=== PATIENT | female | born 1985 | race Caucasian/White ===

== ENCOUNTER 2018-06-06 21:57 | Emergency (ER) | payer BC, MEDICAID ==
[2018-06-06 22:15] VITALS: BP 146/67
--- NOTE | 2018-06-06 22:30 | EDM.PDOC ---
ED HPI GENERAL MEDICAL PROBLEM - General Chief Complaint: ENT Problem Stated Complaint: ILLNESS Time Seen by Provider: 06/06/18 22:15 Source of Information: Reports: Patient History Limitations: Reports: No Limitations - History of Present Illness INITIAL COMMENTS - FREE TEXT/NARRATIVE: 32-year-old female with sinus pressure, ear pain, sore throat and generalized malaise for the past 2 days. No significant cough or shortness of breath, no rashes. 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: - Infectious Disease History Infectious Disease History: Reports: Chicken Pox - Past Surgical History Musculoskeletal Surgical History: Reports: Other (See Below) Social & Family History - Tobacco Use Smoking Status *Q: Current Every Day Smoker Years of Tobacco use: 8 Packs/Tins Daily: 0.5 - Caffeine Use Caffeine Use: Reports: Coffee - Recreational Drug Use Recreational Drug Use: No ED ROS ENT - Review of Systems Review Of Systems: See Below Constitutional: Reports: Malaise HEENT: Reports: Ear Pain, Rhinitis, Throat Pain Respiratory: Denies: Shortness of Breath, Cough Cardiovascular: Denies: Chest Pain GI/Abdominal: Denies: Nausea, Vomiting Skin: Reports: No Symptoms Neurological: Denies: Headache ED EXAM, ENT - Physical Exam Exam: See Below Exam Limited By: No Limitations General Appearance: Alert, No Apparent Distress Eye Exam: Bilateral Eye: Normal Inspection Ears: Normal TMs Mouth/Throat: Pharyngeal Erythema Head: Atraumatic Neck: Lymphadenopathy (R), Lymphadenopathy (L) Respiratory/Chest: No Respiratory Distress, Lungs Clear Neurological: Alert, Oriented Psychiatric: Normal Affect, Normal Mood Skin: Warm, Dry Course - Vital Signs Last Recorded V/S: Last Vital Signs Temp 98.3 F 06/06/18 22:16 Pulse 90 06/06/18 22:16 Resp 18 06/06/18 22:16 BP 146/67 H 06/06/18 22:16 Pulse Ox 98 06/06/18 22:16 - Orders/Labs/Meds Orders: Active Orders 24 hr Category Date Time Status CULTURE STREP A CONFIRMATION [RM] Routine Lab 06/06/18 22:27 Results STREP SCRN A RAPID W CULT CONF [RM] Routine Lab 06/06/18 22:27 Results - Re-Assessments/Exams Free Text/Narrative Re-Assessment/Exam: 06/06/18 22:29 Rapid strep was obtained. 06/06/18 22:54 Strep was negative. A note was written for the patient to be off work tomorrow, she should rest and get fluids, increase activity as tolerated and recheck early next week if not improving satisfactorily. Departure - Departure Time of Disposition: 23:00 Disposition: Home, Self-Care 01 Condition: Good Clinical Impression: Viral URI - Discharge Information Instructions: Viral Respiratory Infection, [id number] Referrals: PCP,None [Primary Care Provider] - Forms: ED Department Discharge Care Plan Goals: Rest, fluids, Tylenol or ibuprofen may help. Increase activity as tolerated and recheck early next week if not improving satisfactorily. - My Orders Last 24 Hours: My Active Orders 06/06/18 22:27 CULTURE STREP A CONFIRMATION [RM] Routine STREP SCRN A RAPID W CULT CONF [RM] Routine - Assessment/Plan Last 24 Hours: My Active Orders 06/06/18 22:27 CULTURE STREP A CONFIRMATION [RM] Routine STREP SCRN A RAPID W CULT CONF [RM] Routine
== END 2018-06-06 23:00 | disposition home or self-care (01) ==
LOC: JP.ED 21:57
DX: J06.9 Acute upper respiratory infection, unspecified (principal); F17.210 Nicotine dependence, cigarettes, uncomplicated; Z79.899 Other long term (current) drug therapy
CPT/HCPCS: 87081; 87430; 99283

== ENCOUNTER 2018-09-22 12:37 | Emergency (ER) | payer BC, MEDICAID ==
[2018-09-22 13:13] VITALS: BP 125/70
[2018-09-22] MEDS ORDERED: cefTRIAXone 1 GM, Lidocaine 1% 2.1 ML IM ONE ×2 (13:41)
[2018-09-22] MEDS ORDERED: Acetaminophen/HYDROcodone 325-5 MG Tab PO ONE (13:47)
--- NOTE | 2018-09-22 13:47 | EDM.PDOC ---
ED HPI GENERAL MEDICAL PROBLEM - General Chief Complaint: ENT Problem Stated Complaint: TOOTH INFECTION Time Seen by Provider: 09/22/18 13:20 Source of Information: Reports: Patient History Limitations: Reports: No Limitations - History of Present Illness INITIAL COMMENTS - FREE TEXT/NARRATIVE: pt arrived with increased pain in the rt lower molar area. She has swelling along the jaw line. She is having severe pain with this. She has a dental appt toomorrow Onset: Gradual, Other (last 2 days. She was placed on amoxicillin on Sunday. She has had 6 doses. ) Duration: Hour(s): Location: Reports: Face Associated Symptoms: Reports: No Other Symptoms Tooth/Teeth Pain Score (Numeric/FACES): 8 - Related Data Allergies Allergy/AdvReac Type Severity Reaction Status Date / Time No Known Allergies Allergy Verified 09/22/18 13:14 Home Meds: Home Meds Vits #93/Iron Fum/FA [ Formula Tablet] 1 tab PO DAILY 12/26/15 [History] Acetaminophen [Tylenol Extra Strength] 500 mg PO Q8HR PRN 09/22/18 [History] Acyclovir [Zovirax] 400 mg TID 09/22/18 [History] Amoxicillin 500 mg TID 09/22/18 [History] Cholecalciferol (Vitamin D3) [Vitamin D] 5,000 units PO DAILY 09/22/18 [History] Ferrous Sulfate [Iron] 325 mg PO DAILY 09/22/18 [History] Past Medical History HEENT History: Reports: Otitis Media 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: Musculoskeletal History: Reports: Other (See Below) Other Musculoskeletal History: DDD Neurological History: Reports: Concussion - Infectious Disease History Infectious Disease History: Reports: Chicken Pox - Past Surgical History Musculoskeletal Surgical History: Reports: Other (See Below) Social & Family History - Tobacco Use Smoking Status *Q: Current Every Day Smoker Years of Tobacco use: 10 Packs/Tins Daily: 0.5 Used Tobacco, but Quit: No Second Hand Smoke Exposure: Yes - Caffeine Use Caffeine Use: Reports: Coffee - Recreational Drug Use Recreational Drug Use: No ED ROS ENT - Review of Systems Review Of Systems: See Below HEENT: Reports: Dental Pain Respiratory: Reports: No Symptoms Cardiovascular: Reports: No Symptoms Endocrine: Reports: No Symptoms GI/Abdominal: Reports: No Symptoms : Reports: No Symptoms ED EXAM, ENT - Physical Exam Exam: See Below Text/Narrative:: 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 She has dental pain in the rt lower molar area. There appears to be two teeth involved. The crown did come off of one of the molars. Exam Limited By: No Limitations General Appearance: Alert, Anxious, Moderate Distress Ears: Normal TMs Nose: Normal Inspection Mouth/Throat: Other (pt has 2 of the teeth that are very uncomfortabl;e. She does have swelling along the jaw line. ) Head: Atraumatic Neck: Lymphadenopathy (R) Respiratory/Chest: No Respiratory Distress Course - Vital Signs Last Recorded V/S: Last Vital Signs Temp 35.1 C L 09/22/18 13:20 Pulse 85 09/22/18 13:20 Resp 16 09/22/18 13:20 BP 125/70 09/22/18 13:20 Pulse Ox 97 09/22/18 13:20 - Orders/Labs/Meds Meds: Medications Discontinued Medications Generic Name Dose Route Start Last Admin Trade Name Freq PRN Reason Stop Dose Admin Hydrocodone Bitart/Acetaminophen 1 tab 09/22/18 13:47 09/22/18 13:54 [place] 325-5 Mg PO 09/22/18 13:48 1 tab ONETIME ONE Administration Ceftriaxone Sodium 1 gm/ 0 gm 09/22/18 13:41 09/22/18 13:51 Lidocaine HCl 2.1 ml IM 09/22/18 13:42 1 inj ONETIME ONE Administration - Re-Assessments/Exams Free Text/Narrative Re-Assessment/Exam: 09/22/18 13:47 pt was given rocephen 1 gm im. hydrocodone 5/325 Departure - Departure Time of Disposition: 13:49 Disposition: Home, Self-Care 01 Condition: Fair Clinical Impression: Tooth infection - Discharge Information Instructions: Dental Abscess, [id number] Referrals: Karo Varela RN [Primary Care Provider] - Forms: ED Department Discharge Care Plan Goals: keep dental appt tomorrow, cont amoxicillin, norco 5/325 q6h prn for pain #6
== END 2018-09-22 14:01 | disposition home or self-care (01) ==
LOC: JP.ED 12:37
DX: K04.7 Periapical abscess without sinus (principal); F17.210 Nicotine dependence, cigarettes, uncomplicated
CPT/HCPCS: A9270-GY; J0696; J2001

== ENCOUNTER 2018-11-17 14:25 | Emergency (ER) | payer BC ==
[2018-11-17] MEDS ORDERED: Acetaminophen 1,000 MG in Premix Bag 1 BAG IV ONE (14:59)
[2018-11-17] MEDS ORDERED: Sodium Chloride 0.9% 1,000 ML IV SCH ×2 (15:00→17:45)
[2018-11-17] MEDS ORDERED: Acetaminophen 500 MG Tab PO ONE (15:04)
[2018-11-17] MEDS ORDERED: Ondansetron 4 MG/2 ML SDV IVPUSH ONE (15:05)
[2018-11-17] MEDS ORDERED: fentaNYL 100 MCG/2 ML SDV IVPUSH ONE (15:40)
--- NOTE | 2018-11-17 15:47 | CRLCT ---
Headache. Technique noncontrast head CT scan. Coronal sagittal reformat images obtained. COMPARISON: No comparison studies are available FINDINGS: Axial noncontrast images through the brain parenchyma demonstrates no acute intracranial hemorrhage or mass. No midline shift. No abnormal extra-axial air fluid collections. Mucosal thickening of the ethmoid air cells paranasal sinuses mastoid air cells skull and scalp appear otherwise unremarkable. IMPRESSION: No acute intracranial hemorrhage or mass Ethmoid sinus disease. Please note that all CT scans at this facility use dose modulation, iterative reconstruction, and/or weight-based dosing when appropriate to reduce radiation dose to as low as reasonably achievable. Dictated by Sho Monae MD @ Nov 17 2018 3:44PM Signed by Dr. Sho Monae @ Nov 17 2018 3:46PM
[2018-11-17] MEDS ORDERED: Ketorolac 30 MG/ML SDV IVPUSH ONE (15:58)
[2018-11-17] MEDS ORDERED: Doxycycline 100 MG Cap PO ONE (17:35)
[2018-11-17 18:10] VITALS: BP 108/50
--- NOTE | 2018-11-17 18:27 | EDM.PDOC ---
ED HPI GENERAL MEDICAL PROBLEM - General Chief Complaint: Headache Stated Complaint: TERRIBLE HEADACHE Time Seen by Provider: 11/17/18 14:56 Source of Information: Reports: Patient History Limitations: Reports: No Limitations - History of Present Illness INITIAL COMMENTS - FREE TEXT/NARRATIVE: 33 yo female present with severe headache located in crown of head. HEadache has been present sin cethu evening when it initiated it was a severe sudden onset. She also has had fever and chills for 2 days. mild congestion. she did have a tick bite 2 weeks ago, unsure what kind of tick. 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: Musculoskeletal History: Reports: Other (See Below) Other Musculoskeletal History: DDD Neurological History: Reports: Concussion - Infectious Disease History Infectious Disease History: Reports: Chicken Pox - Past Surgical History Musculoskeletal Surgical History: Reports: Other (See Below) Social & Family History - Tobacco Use Smoking Status *Q: Current Every Day Smoker Years of Tobacco use: 16 Packs/Tins Daily: 0.5 - Caffeine Use Caffeine Use: Reports: Coffee ED ROS GENERAL - Review of Systems Review Of Systems: See Below Constitutional: Reports: Fever, Chills, Malaise, Fatigue HEENT: Reports: Rhinitis, Sinus Problem Respiratory: Denies: Shortness of Breath, Wheezing Cardiovascular: Denies: Chest Pain GI/Abdominal: Reports: Anorexia Skin: Denies: Rash - Physical Exam Exam: See Below Exam Limited By: No Limitations General Appearance: Alert, WD/WN, Mild Distress Ears: Normal External Exam, Normal Canal, Hearing Grossly Normal, Normal TMs Nose: Normal Inspection, Normal Mucosa, No Blood Throat/Mouth: Normal Inspection, Normal Lips, Normal Teeth, Normal Gums, Normal Oropharynx, Normal Voice Head Exam: Atraumatic, Normocephalic Neck: Normal Inspection, Supple, Non-Tender, Full Range of Motion. No: Lymphadenopathy (R), Lymphadenopathy (L) Respiratory/Chest: No Respiratory Distress, Lungs Clear, Normal Breath Sounds, No Accessory Muscle Use, Chest Non-Tender. No: Crackles, Rhonchi, Wheezing Cardiovascular: No Edema, No Murmur, Tachycardia GI/Abdominal: Soft, Non-Tender Neuro Exam (Abbreviated): Alert, Oriented, CN II-XII Intact, Normal Cognition, Normal Gait Back Exam: No: CVA Tenderness (R), CVA Tenderness (L) Psychiatric: Normal Affect, Normal Mood Skin Exam: Warm, Dry, Intact, Normal Color, No Rash Course - Vital Signs Last Recorded V/S: Last Vital Signs Temp 37.3 C 11/17/18 18:07 Pulse 62 11/17/18 18:07 Resp 14 11/17/18 18:07 BP 108/50 L 11/17/18 18:07 Pulse Ox 97 11/17/18 18:07 - Orders/Labs/Meds Orders: Active Orders 24 hr Category Date Time Status BABESIA MICROTI ANTIBODY PANEL Urgent Lab 11/17/18 15:18 Received CULTURE BLOOD [BC] Urgent Lab 11/17/18 15:00 Received CULTURE BLOOD [BC] Urgent Lab 11/17/18 15:10 Received CULTURE STREP A CONFIRMATION [RM] Stat Lab 11/17/18 14:58 Results HUMAN GRANULOCYTIC JULISSA-HGE Urgent Lab 11/17/18 15:18 Received LYME, TOTAL AB TEST/REFLEX Stat Lab 11/17/18 15:18 Received STREP SCRN A RAPID W CULT CONF [RM] Stat Lab 11/17/18 14:58 Results Sodium Chloride 0.9% [Normal Saline] 1,000 ml Med 11/17/18 15:00 Active IV ASDIRECTED Sodium Chloride 0.9% [Normal Saline] 1,000 ml Med 11/17/18 17:45 Active IV ASDIRECTED Blood Culture x2 Reflex Set [OM.PC] Urgent Oth 11/17/18 15:03 Ordered Medication Orders Sodium Chloride (Normal Saline) 1,000 mls @ 999 mls/hr IV ASDIRECTED JAYNE Last Admin: 11/17/18 15:26 Dose: 999 mls/hr Sodium Chloride (Normal Saline) 1,000 mls @ 999 mls/hr IV ASDIRECTED JAYNE Last Admin: 11/17/18 18:04 Dose: 999 mls/hr Labs: Laboratory Tests 06/23/19 06/23/19 Range/Units 15:18 15:18 WBC 6.4 (4.5-11.0) K/uL RBC 4.85 (3.30-5.50) M/uL Hgb 14.2 (12.0-15.0) g/dL Hct 42.6 (36.0-48.0) % MCV 88 (80-98) fL MCH 29 (27-31) pg MCHC 33 (32-36) % Plt Count 148 L (150-400) K/uL Neut % (Auto) 74 H (36-66) % Lymph % (Auto) 18 L (24-44) % Fisher % (Auto) 8 H (2-6) % Eos % (Auto) 0 L (2-4) % Baso % (Auto) 0 (0-1) % Sodium 138 L (140-148) mmol/L Potassium 3.4 L (3.6-5.2) mmol/L Chloride 101 (100-108) mmol/L Carbon Dioxide 25 (21-32) mmol/L Anion Gap 15.4 H (5.0-14.0) mmol/L BUN 9 (7-18) mg/dL Creatinine 0.8 (0.6-1.0) mg/dL Est Cr Clr Drug Dosing 98.40 mL/min Estimated GFR (MDRD) > 60 (>60) Glucose 97 (74-106) mg/dL Calcium 9.1 (8.5-10.1) mg/dL Total Bilirubin 0.4 (0.2-1.0) mg/dL AST 19 (15-37) U/L ALT 20 (12-78) U/L Alkaline Phosphatase 76 (46-116) U/L Total Protein 8.0 (6.4-8.2) g/dL Albumin 3.4 (3.4-5.0) g/dL Globulin 4.6 H (2.3-3.5) g/dL Albumin/Globulin Ratio 0.7 L (1.2-2.2) Meds: Medications Generic Name Dose Route Start Last Admin Trade Name Freq PRN Reason Stop Dose Admin Sodium Chloride 1,000 mls @ 999 mls/hr 11/17/18 15:00 11/17/18 15:26 Normal Saline IV 999 mls/hr ASDIRECTED JAYNE Administration Sodium Chloride 1,000 mls @ 999 mls/hr 11/17/18 17:45 11/17/18 18:04 Normal Saline IV 999 mls/hr ASDIRECTED JAYNE Administration Discontinued Medications Generic Name Dose Route Start Last Admin Trade Name Kristen PRN Reason Stop Dose Admin Acetaminophen 1,000 mg 11/17/18 15:04 11/17/18 15:20 Tylenol Extra Strength PO 11/17/18 15:05 1,000 mg ONETIME ONE Administration Doxycycline Hyclate 100 mg 11/17/18 17:35 11/17/18 18:04 Vibramycin PO 11/17/18 17:36 100 mg ONETIME ONE Administration Fentanyl 50 mcg 11/17/18 15:40 11/17/18 15:48 Sublimaze IVPUSH 11/17/18 15:41 50 mcg ONETIME ONE Administration Acetaminophen 1,000 mg/ Premix 100 mls @ 400 mls/hr 11/17/18 14:59 IV 11/17/18 15:13 NOW ONE Ketorolac Tromethamine 30 mg 11/17/18 15:58 11/17/18 18:04 Toradol IVPUSH 11/17/18 15:59 30 mg ONETIME ONE Administration Ondansetron HCl 4 mg 11/17/18 15:05 11/17/18 15:20 Zofran IVPUSH 11/17/18 15:06 4 mg ONETIME ONE Administration - Re-Assessments/Exams Free Text/Narrative Re-Assessment/Exam: 11/17/18 18:29 headache relieved with fluids and medications. CT scan no acute intracranial hemorrhage but did show ethmoid sinusitis. pt received 2 liters of fluid and fever resolved. will initiate on antibiotic doxycycline to treat both sinusitis and if this is a tick born illness. Departure - Departure Time of Disposition: 18:45 Disposition: Home, Self-Care 01 Condition: Good Clinical Impression: Sinusitis, Tick borne fever - Discharge Information *PRESCRIPTION DRUG MONITORING PROGRAM REVIEWED*: Not Applicable *COPY OF PRESCRIPTION DRUG MONITORING REPORT IN PATIENT SCARLETT: Not Applicable Instructions: Sinusitis, Adult, [id number] Referrals: Karo Varela RN [Primary Care Provider] - Forms: ED Department Discharge Additional Instructions: Doxycycline 100 mg twice daily for 14 days increase fluid intake with goal of 1.5-2 liters per day rest Ibuprofen 400-600 mg every 6 hours for fever control and pain return if headache returns to previous severity - My Orders Last 24 Hours: My Active Orders 11/17/18 14:58 CULTURE STREP A CONFIRMATION [RM] Stat STREP SCRN A RAPID W CULT CONF [RM] Stat 11/17/18 15:00 CULTURE BLOOD [BC] Urgent Sodium Chloride 0.9% [Normal Saline] 1,000 ml IV ASDIRECTED 11/17/18 15:03 Blood Culture x2 Reflex Set [OM.PC] Urgent 11/17/18 15:10 CULTURE BLOOD [BC] Urgent 11/17/18 15:18 BABESIA MICROTI ANTIBODY PANEL Urgent HUMAN GRANULOCYTIC JULISSA-HGE Urgent LYME, TOTAL AB TEST/REFLEX Stat 11/17/18 17:45 Sodium Chloride 0.9% [Normal Saline] 1,000 ml IV ASDIRECTED - Assessment/Plan Last 24 Hours: My Active Orders 11/17/18 14:58 CULTURE STREP A CONFIRMATION [RM] Stat STREP SCRN A RAPID W CULT CONF [RM] Stat 11/17/18 15:00 CULTURE BLOOD [BC] Urgent Sodium Chloride 0.9% [Normal Saline] 1,000 ml IV ASDIRECTED 11/17/18 15:03 Blood Culture x2 Reflex Set [OM.PC] Urgent 11/17/18 15:10 CULTURE BLOOD [BC] Urgent 11/17/18 15:18 BABESIA MICROTI ANTIBODY PANEL Urgent HUMAN GRANULOCYTIC JULISSA-HGE Urgent LYME, TOTAL AB TEST/REFLEX Stat 11/17/18 17:45 Sodium Chloride 0.9% [Normal Saline] 1,000 ml IV ASDIRECTED
[2018-11-21 16:08] LABS: BABESIA MICROTI IGG 1:40 (Neg:<1:10); BABESIA MICROTI IGM <1:10 (Neg:<1:10)
== END 2018-11-17 19:31 | disposition home or self-care (01) ==
LOC: JP.ED 14:25
DX: A93.8 Other specified arthropod-borne viral fevers (principal); J32.9 Chronic sinusitis, unspecified; F17.210 Nicotine dependence, cigarettes, uncomplicated
CPT/HCPCS: 36415; 70450; 80053; 85025; 86666; 86753; 87040; 87081; 87430; 96361; 96374; 96375; 99284; A9270; J1885; J2405; J3010; J7030

== ENCOUNTER 2020-12-12 12:34 | Emergency (ER) | payer BC, MEDICAID ==
[2020-12-12 13:04] VITALS: BP 121/69; PULSE 89
--- NOTE | 2020-12-12 13:43 | EDM.PDOC ---
<Amy Wilson - Last Filed: 12/12/20 17:45> ED HPI GENERAL MEDICAL PROBLEM - General Chief Complaint: Respiratory Problem Stated Complaint: DOUBLE PERIODS, WEAK, HEART PALPULTATIONS Time Seen by Provider: 12/12/20 13:15 Source of Information: Reports: Patient, Family History Limitations: Reports: No Limitations - History of Present Illness INITIAL COMMENTS - FREE TEXT/NARRATIVE: 35 year old female with history of lyme disease arrives with multiple complaints including cough, fever, shortness of breath, nausea, vomiting, weakness, weight loss of 15 lbs in 3 months, "double menses" x 3 months (regular flow for 4 days, stops and then returns days later with regular flow for 4 more days), and fatigue. All of her symptoms have been going on for 3 months. She reports that the reason for her visit today is due to her menses starting again and her being frustrated with her symptoms. She is anxious and on the verge of tears during interaction. Reports hx of abnormal PAP 1 year ago but doesn't recall the details, has had a previous miscarriage prior to the of her two health, living children. Patient is not preventing at this time, is , sexually active, and has not had any new partners. She denies other complaints such as chest pain, blood in her stool or urine, rashes. She reports that she has had lyme flair ups similar to this for the last two years around this time but those were not accompanied with changes in her menses. She reports she has not had Covid-19 and has not been vaccinated for Covid-19. Onset: Gradual Duration: Chronic Location: Reports: Generalized Quality: Reports: Ache Severity: Moderate Improves with: Reports: None Worsens with: Reports: None Associated Symptoms: Reports: Cough, Diaphoresis, Fever/Chills, Loss of Appetite, Malaise, Nausea/Vomiting, Shortness of Breath, Weakness - Related Data Allergies Allergy/AdvReac Type Severity Reaction Status Date / Time No Known Allergies Allergy Verified 12/12/20 12:48 Past Medical History HEENT History: Reports: Otitis Media [employer] History: Reports: Musculoskeletal History: Reports: Other (See Below) Other Musculoskeletal History: DDD Neurological History: Reports: Concussion - Infectious Disease History Infectious Disease History: Reports: Chicken Pox - Past Surgical History Other HEENT Surgeries/Procedures: wisdom teeth removed Musculoskeletal Surgical History: Reports: Other (See Below) Other Musculoskeletal Surgeries/Procedures:: degerative disease, 3 bulg disks in back Social & Family History - Tobacco Use Years of Tobacco use: 20 Packs/Tins Daily: 0.5 - Caffeine Use Caffeine Use: Reports: Coffee ED ROS GENERAL - Review of Systems Review Of Systems: See Below Constitutional: Reports: Fever, Chills, Malaise, Weakness, Fatigue, Night Sweats, Diaphoresis, Decreased Appetite, Weight Loss HEENT: Reports: No Symptoms Respiratory: Reports: Shortness of Breath (with exertion), Cough, Sputum (small production of clear/ yellow phlem with coughing). Denies: Wheezing Cardiovascular: Reports: Dyspnea on Exertion (moderate), Palpitations (with activity). Denies: Chest Pain, Blood Pressure Problem, Edema, Lightheadedness, Syncope Endocrine: Reports: No Symptoms GI/Abdominal: Reports: Decreased Appetite (no nausea but just "doesnt feel like eating"), Nausea (one episode of nausea and vomiting on sunday), Vomiting. Denies: Abdominal Pain, Black Stool, Bloody Stool, Constipation, Diarrhea, Hematemesis, Hematochezia : Reports: No Symptoms. Denies: Dysuria, Flank Pain, Hematuria Musculoskeletal: Reports: No Symptoms Skin: Reports: Diaphoresis (she reports night sweats that soak her sheets, nearly every night) Neurological: Denies: Confusion, Dizziness, Headache, Numbness, Syncope, Tremors, Difficulty Walking Psychiatric: Reports: Anxiety (tearful with coversation and "jumpy" with inspection/ palpation) Hematologic/Lymphatic: Reports: No Symptoms (does not appear pale) Immunologic: Reports: No Symptoms ED EXAM, GENERAL - Physical Exam Exam: See Below Free Text/Narrative:: Dionne is resting on the cart, she is tearful with interactions. Generally well appearing, skin is warm, dry, and normal/ good color for race. She is alert and oriented, respirations are regular and non labored, lungs are clear throughout, no abnormal heart sounds, she has no pain with palpation of the abdomen,normal active bowel sounds, No pedal edema. Her vitals are WNL and does not appear to be in distress. No cervical lymphadenopathy. Exam Limited By: No Limitations General Appearance: Alert, WD/WN, Anxious Ears: Normal External Exam Nose: Normal Inspection, Normal Mucosa, No Blood Throat/Mouth: Normal Inspection, Normal Lips, Normal Voice, No Airway Compromise Head: Atraumatic. No: Facial Swelling Neck: Normal Inspection, Non-Tender, Full Range of Motion. No: Lymphadenopathy (R) Respiratory/Chest: No Respiratory Distress, Lungs Clear, Normal Breath Sounds. No: Decreased Breath Sounds, Crackles, Rales, Rhonchi, Wheezing, Stridor Cardiovascular: Normal Peripheral Pulses, Regular Rate, Rhythm, No Edema GI/Abdominal: Normal Bowel Sounds, Soft, Non-Tender, No Distention. No: Distended, Guarding, Rigid, Tender, Abnormal Bowel Sounds (Female) Exam: Vaginal Bleeding ("double menses" for 3 months now- 4 days of regular flow, stops, then 4 more days of flow. Denies other vaginal discharge) Rectal (Female) Exam: Deferred Back Exam: Normal Inspection, Full Range of Motion Extremities: Normal Inspection, Normal Range of Motion, Non-Tender, No Pedal Edema, Normal Capillary Refill Neurological: Alert, Oriented, Normal Cognition, Normal Gait. No: Inattentive, Confused, Memory Loss Remote Events, Memory Loss Recent Events, Abnormal Gait Psychiatric: Anxious, Tearful Skin Exam: Warm, Dry, Intact, Normal Color, No Rash. No: Jaundice, Rash Lymphatic: No Adenopathy Course - Vital Signs Text/Narrative:: Discussed with patient large workup, including blood tests, xray, and covid swab. Patient is anxious and near tears during assessment. Agreeable to plan of care at this time. - Re-Assessments/Exams Free Text/Narrative Re-Assessment/Exam: 12/12/20 16:51 Discussed with patient the results of her blood tests. CRP and DDimer are elevated. CXR showed some right lower lobe infiltrates. Patient is agreeable to CT PE study with contrast and IV fluid bolus. Departure - Departure Time of Disposition: 17:35 Disposition: Home, Self-Care 01 Condition: Good Clinical Impression: Lyme disease, Tick borne fever Pneumonia Qualifiers: Pneumonia type: due to unspecified organism Laterality: bilateral Lung location: lower lobe of lung Qualified Code(s): J18.9 - Pneumonia, unspecified organism - Discharge Information Instructions: Shortness of Breath, Adult, [id number], COVID-19 Vaccine Information Referrals: PCP,None [Primary Care Provider] - Forms: ED Department Discharge Care Plan Goals: You have antibodies for old lyme disease and acute lyme disease today, as well as a "covid like" pneumonia on your CT scan. No blood clots in your lungs. Please take Doxycycline twice per day for 3 weeks. This will cover the pneumonia and the active lyme disease. It is likely you may have had covid 19 when your symptoms first started but are showing negative at this time and just have a lingering pneumonia. Please try to stop smoking. If you are not feeling like you are improving or if you feel you are getting worse, please return for re evaluation. Establish care with a primary doctor and make a follow up apointment in a week to monitor your symptoms and make sure you are improving. Take antibiotics with food and stay well hydrated. You can use Tylenol and or Ibuprofen for fevers and body aches. Sepsis Event Note (ED) - Evaluation Sepsis Screening Result: No Definite Risk <Martín Meneses - Last Filed: 12/13/20 11:13> Course - Vital Signs Last Recorded V/S: Last Vital Signs Temp 98.1 F 12/12/20 13:03 Pulse 89 12/12/20 13:03 Resp 16 12/12/20 13:03 BP 121/69 12/12/20 13:03 Pulse Ox 96 12/12/20 13:03 - Orders/Labs/Meds Orders: Active Orders 24 hr Category Date Time Status LYME, LINE BLOT, SERUM Stat Lab 12/12/20 13:43 Received Saline Lock Insert [OM.PC] Routine Oth 12/12/20 15:03 Ordered Labs: Laboratory Tests 12/12/20 12/12/20 12/12/20 Range/Units 13:42 13:43 13:43 WBC 14.2 H (4.5-11.0) K/uL RBC 4.62 (3.30-5.50) M/uL Hgb 13.5 (12.0-15.0) g/dL Hct 39.9 (36.0-48.0) % MCV 86 (80-98) fL MCH 29 (27-31) pg MCHC 34 (32-36) % Plt Count 240 (150-400) K/uL Neut % (Auto) 85.3 H (36-66) % Lymph % (Auto) 8.9 L (24-44) % [place] % (Auto) 5.4 (2-6) % Eos % (Auto) 0.1 L (2-4) % Baso % (Auto) 0.3 (0-1) % D-Dimer, Quantitative 738.41 H (0.0-500.0) ng/mL Sodium 141 (140-148) mmol/L Potassium 3.1 L (3.6-5.2) mmol/L Chloride 101 (100-108) mmol/L Carbon Dioxide 25 (21-32) mmol/L Anion Gap 18.1 H (5.0-14.0) mmol/L BUN 9 (7-18) mg/dL Creatinine 0.6 (0.6-1.0) mg/dL Est Cr Clr Drug Dosing 114.91 mL/min Estimated GFR (MDRD) > 60 (>60) Glucose 85 (74-106) mg/dL Calcium 9.0 (8.5-10.1) mg/dL Total Bilirubin 1.3 H D (0.2-1.0) mg/dL AST 31 (15-37) U/L ALT 19 (12-78) U/L Alkaline Phosphatase 67 (46-116) U/L C-Reactive Protein 21.80 H (0.0-0.3) mg/dL Total Protein 7.8 (6.4-8.2) g/dL Albumin 3.5 (3.4-5.0) g/dL Globulin 4.3 H (2.3-3.5) g/dL Albumin/Globulin Ratio 0.8 L (1.2-2.2) TSH, Ultra Sensitive (0.358-3.740) uIU/mL HCG, Qual Lyme Disease IgG Ab (Negative) Lyme Disease IgM Ab (Negative) Influenza Type A RNA (NEGATIVE) RSV RNA (INAAT) (NEGATIVE) Influenza Type B RNA (NEGATIVE) SARS-CoV-2 RNA ([facility]) (NEGATIVE) 12/12/20 12/12/20 12/12/20 Range/Units 13:43 13:43 13:43 WBC (4.5-11.0) K/uL RBC (3.30-5.50) M/uL Hgb (12.0-15.0) g/dL Hct (36.0-48.0) % MCV (80-98) fL MCH (27-31) pg MCHC (32-36) % Plt Count (150-400) K/uL Neut % (Auto) (36-66) % Lymph % (Auto) (24-44) % [place] % (Auto) (2-6) % Eos % (Auto) (2-4) % Baso % (Auto) (0-1) % D-Dimer, Quantitative (0.0-500.0) ng/mL Sodium (140-148) mmol/L Potassium (3.6-5.2) mmol/L Chloride (100-108) mmol/L Carbon Dioxide (21-32) mmol/L Anion Gap (5.0-14.0) mmol/L BUN (7-18) mg/dL Creatinine (0.6-1.0) mg/dL Est Cr Clr Drug Dosing mL/min Estimated GFR (MDRD) (>60) Glucose (74-106) mg/dL Calcium (8.5-10.1) mg/dL Total Bilirubin (0.2-1.0) mg/dL AST (15-37) U/L ALT (12-78) U/L Alkaline Phosphatase (46-116) U/L C-Reactive Protein (0.0-0.3) mg/dL Total Protein (6.4-8.2) g/dL Albumin (3.4-5.0) g/dL Globulin (2.3-3.5) g/dL Albumin/Globulin Ratio (1.2-2.2) TSH, Ultra Sensitive 0.882 (0.358-3.740) uIU/mL HCG, Qual Negative Lyme Disease IgG Ab Positive (Negative) Lyme Disease IgM Ab Positive H (Negative) Influenza Type A RNA (NEGATIVE) RSV RNA (INAAT) (NEGATIVE) Influenza Type B RNA (NEGATIVE) SARS-CoV-2 RNA (PANHCO) (NEGATIVE) 12/12/20 Range/Units 13:50 WBC (4.5-11.0) K/uL RBC (3.30-5.50) M/uL Hgb (12.0-15.0) g/dL Hct (36.0-48.0) % MCV (80-98) fL MCH (27-31) pg MCHC (32-36) % Plt Count (150-400) K/uL Neut % (Auto) (36-66) % Lymph % (Auto) (24-44) % [place] % (Auto) (2-6) % Eos % (Auto) (2-4) % Baso % (Auto) (0-1) % D-Dimer, Quantitative (0.0-500.0) ng/mL Sodium (140-148) mmol/L Potassium (3.6-5.2) mmol/L Chloride (100-108) mmol/L Carbon Dioxide (21-32) mmol/L Anion Gap (5.0-14.0) mmol/L BUN (7-18) mg/dL Creatinine (0.6-1.0) mg/dL Est Cr Clr Drug Dosing mL/min Estimated GFR (MDRD) (>60) Glucose (74-106) mg/dL Calcium (8.5-10.1) mg/dL Total Bilirubin (0.2-1.0) mg/dL AST (15-37) U/L ALT (12-78) U/L Alkaline Phosphatase (46-116) U/L C-Reactive Protein (0.0-0.3) mg/dL Total Protein (6.4-8.2) g/dL Albumin (3.4-5.0) g/dL Globulin (2.3-3.5) g/dL Albumin/Globulin Ratio (1.2-2.2) TSH, Ultra Sensitive (0.358-3.740) uIU/mL HCG, Qual Lyme Disease IgG Ab (Negative) Lyme Disease IgM Ab (Negative) Influenza Type A RNA Negative (NEGATIVE) RSV RNA (INAAT) Negative (NEGATIVE) Influenza Type B RNA Negative (NEGATIVE) SARS-CoV-2 RNA ([facility]) Negative (NEGATIVE) Meds: Medications Discontinued Medications Generic Name Dose Route Start Last Admin Trade Name Freq PRN Reason Stop Dose Admin Doxycycline Hyclate 200 mg 12/12/20 16:26 12/12/20 16:31 Doxycycline 100 Mg Cap PO 12/12/20 16:27 200 mg ONETIME ONE Administration Sodium Chloride 1,000 mls @ 999 mls/hr 12/12/20 15:15 12/12/20 16:00 Normal Saline IV 999 mls/hr ASDIRECTED JAYNE Administration Sodium Chloride 100 mls @ 3 mls/sec 12/12/20 15:30 12/12/20 15:46 Normal Saline IV 12/12/20 15:31 3 mls/sec ASDIRECTED JAYNE Administration Iopamidol 100 ml 12/12/20 15:18 Iopamidol 612 Mg/Ml 100 Ml Bottle IV 12/13/20 15:19 . DIRECTED PRN RADIOLOGY EXAM Iopamidol 100 ml 12/12/20 15:45 12/12/20 15:46 Iopamidol 755 Mg/Ml 100 Ml Bottle IV 100 ml . DIRECTED JAYNE Administration Sodium Chloride 10 ml 12/12/20 15:18 12/12/20 15:46 Sodium Chloride 0.9% 10 Ml Sdv FLUSH 12/12/20 15:19 10 ml ONETIME ONE Administration - Re-Assessments/Exams Free Text/Narrative Re-Assessment/Exam: 12/12/20 17:09 IMPRESSION: 1. No acute pulmonary embolism. 2. Bilateral lung infiltrates. Rule out COVID-19 pneumonia. Above was discussed with the patient, she has been tested for Covid several times and was negative and is negative again today. She is agreeable to trying a course of doxycycline twice daily for 3 weeks, and was given her first 200 mg dose today. I asked her to get a regular doctor so she can recheck in 7 to 10 days, she should also try to stop smoking if possible. Attestation - Student - Attestation Statement Attestation Statement: I personally performed or re-performed the physical examination and medical decision making. I have verified all student documentation or findings, including history, physical exam and/or medical decision making.
[2020-12-12 14:44] LABS: CORONAVIRUS COVID-19 NAA NEGATIVE (NEGATIVE)
[2020-12-12] MEDS ORDERED: Sodium Chloride 0.9% 1,000 ML IV SCH (15:15)
[2020-12-12] MEDS ORDERED: Iopamidol 612 MG/ML 100 ML Bottle IV PRN (15:18)
[2020-12-12] MEDS ORDERED: Sodium Chloride 0.9% 10 ML SDV FLUSH ONE (15:18)
[2020-12-12] MEDS ORDERED: Sodium Chloride 0.9% 100 ML IV SCH (15:30)
[2020-12-12] MEDS ORDERED: Iopamidol 755 Mg/ML 100 ML Bottle IV SCH (15:45)
[2020-12-12] MEDS ORDERED: Doxycycline 100 MG Cap PO ONE (16:26)
--- NOTE | 2020-12-12 16:36 | CRLCT ---
For Patients: As a result of the Century Cures Act, medical imaging exams and procedure reports are released immediately into your electronic medical record. You may view this report before your referring provider. If you have questions, please contact your health care provider. HISTORY: Elevated D-dimer. TECHNIQUE: Intravenous contrast enhanced CT of the chest. 53 mL of Isovue-370 intravenous contrast administered. COMPARISON: No prior. FINDINGS: There are bilateral lung infiltrates. Rule out COVID-19 pneumonia. No pleural effusion or pneumothorax. There is no thoracic aortic aneurysm or dissection. Trace amount pericardial fluid is likely physiologic. There is no acute pulmonary embolism. Mildly prominent hilar lymph nodes may be reactive. Mild degenerative changes of the spine. No acute fractures. IMPRESSION: 1. No acute pulmonary embolism. 2. Bilateral lung infiltrates. Rule out COVID-19 pneumonia. Dictated by Byron Yip MD @ 12/12/2020 4:35:13 PM Please note that all CT scans at this facility use dose modulation, iterative reconstruction, and/or weight-based dosing when appropriate to reduce radiation dose to as low as reasonably achievable. Dictated by: Byron Yip MD @ 12/12/2020 16:35:17 (Electronically Signed)
--- NOTE | 2020-12-13 11:06 | CR ---
CHEST: 2 view CLINICAL HISTORY:Cough COMPARISON:None FINDINGS: Heart size and pulmonary vascularity are normal. There is patchy infiltrate diffusely throughout both mid to lower lung santiago. Impression: Bilateral pneumonic infiltrates.
== END 2020-12-12 17:35 | disposition home or self-care (01) ==
LOC: JP.ED 12:34
DX: J18.9 Pneumonia, unspecified organism (principal); A69.20 Lyme disease, unspecified; A93.8 Other specified arthropod-borne viral fevers; R79.82 Elevated C-reactive protein (CRP); R79.1 Abnormal coagulation profile; Z72.0 Tobacco use; Z20.822 Contact with and (suspected) exposure to COVID-19
CPT/HCPCS: 0241U; 36415; 71046; 71275; 80053; 84443; 84703; 85025; 85379; 86140; 86617; 86618; 99285; A9270; J7030; Q9967

== ENCOUNTER 2024-08-27 11:41 | Emergency (ER) | payer BC, OTHER ==
[2024-08-27 11:56] VITALS: BP 124/69; PULSE 86
[2024-08-27 12:17] LABS: BASOPHILS ABSOLUTE AUTO 0.03 K/uL (0.00-0.10); BASOPHILS PERCENT AUTO 0.3 % (0.1-1.3); EOSINOPHILS PERCENT AUTO 0.1 % (0.0-5.4); HEMATOCRIT 41.7 % (34.3-46.0); HEMOGLOBIN 14.7 g/dL (11.2-15.5); IMMATURE GRAN ABSOLUTE AUTO 0.05 K/uL (0.00-0.23); IMMATURE GRAN PERCENT AUTO 0.5 % (0.0-0.7); LYMPHOCYTES ABSOLUTE AUTO 0.84 K/uL (0.8-3.3); LYMPHOCYTES PERCENT AUTO 8.9 % (11.4-47.7); MEAN CORPUSCULAR HEMOGLOBIN 31.3 pg (31.6-35.5); MEAN CORPUSCULAR HGB CONC 35.3 g/dL (31.6-35.5); MEAN CORPUSCULAR VOLUME 88.7 fL (81.4-99.0); MONOCYTES PERCENT AUTO 7.4 % (3.3-12.6); NEUTROPHILS ABSOLUTE AUTO 7.77 K/uL (1.0-7.6); NEUTROPHILS PERCENT AUTO 82.8 % (40.0-78.1); PLATELET COUNT,PLT 191 K/uL (130-375); WHITE BLOOD CELL COUNT,WBC 9.4 K/uL (3.2-11.0)
[2024-08-27 12:23] LABS: EOSINOPHILS ABSOLUTE AUTO 0.01 K/uL (0.00-0.40)
[2024-08-27 12:41] LABS: ALANINE AMINOTRANSFERASE,ALT 20 U/L (12-78); ALBUMIN 3.6 g/dL (3.4-5.0); ALKALINE PHOSPHATASE 54 U/L (46-116); ASPARTATE AMNIOTRANSFERASE,AST 16 U/L (15-37); BILIRUBIN TOTAL 0.8 mg/dL (0.2-1.0); BLOOD UREA NITROGEN,BUN 11 mg/dL (7-18); C-REACTIVE PROTEIN 4.95 mg/dL (<0.50); CALCIUM 8.9 mg/dL (8.5-10.1); CARBON DIOXIDE,CO2 22 mmol/L (21-32); CHLORIDE,CL 100 mmol/L (100-108); CREATININE 0.6 mg/dL (0.6-1.0); EST CRCL DRUG DOSING (CG) 117.66 mL/min; ESTIMATED GFR 116 mL/min (>60); GLUCOSE RANDOM 101 mg/dL (74-106); POTASSIUM,K 3.3 mmol/L (3.6-5.2); PROTEIN TOTAL,TP 7.3 g/dL (6.4-8.2); SODIUM,NA 136 mmol/L (140-148)
[2024-08-27 12:43] LABS: ANION GAP 17.3 mmol/L (5.0-14.0)
[2024-08-27 13:05] LABS: LYME AB IgG Positive (Negative); LYME AB IgM Positive (Negative)
== END 2024-08-27 13:24 | disposition home or self-care (01) ==
LOC: JP.ED 11:41
DX: A69.20 Lyme disease, unspecified (principal)
CPT/HCPCS: 80053; 85025; 86140; 86617; 86618; 87468; 87469; 87484; 87798; 99283